=== PATIENT | female | born 1950 ===

== ENCOUNTER 2018-11-18 18:26 | Emergency (ER) | payer MEDICARE, OTHER ==
[2018-11-18 18:27] VITALS: BMI 27.0
[2018-11-18 18:36] VITALS: TEMP 99.4
[2018-11-18] MEDS ORDERED: Albuterol-Ipratrop 3 mg / 0.5 (3 ml) UD INH STA (19:20)
[2018-11-18 19:37] LABS: BASO % 0.4 % (0.0-2.0); EOS # 0.1 K/uL (0.0-0.7); EOS % 0.9 % (0.0-4.0); HEMOGLOBIN 13.7 g/dL (11.0-16.0); LYMPH # 0.8 K/uL (1.0-4.3); MEAN CELL VOLUME 96.6 fL (81.0-99.0); MEAN CORPUSCULAR HEMOGLOBIN 32.8 pg (27.0-31.0); MEAN PLATELET VOLUME 7.7 fL (7.2-11.7); MONO # 0.5 K/uL (0.0-0.8); MONO % 6.7 % (0.0-10.0); NEUT # 6.2 K/uL (1.8-7.0); RBC 4.19 Mil/uL (3.80-5.20); RED CELL DISTRIBUTION WIDTH 12.5 % (11.5-14.5); WHITE BLOOD COUNT 7.6 K/uL (4.8-10.8)
[2018-11-18] MEDS ORDERED: Albuterol-Ipratrop 3 mg / 0.5 (3 ml) UD ONE (19:37)
[2018-11-18 19:48] LABS: ALB/GLOB RATIO 1.4 (1.0-2.1); ALBUMIN 4.2 g/dL (3.5-5.0); ALT/SGPT 43 U/L (9-52); AST/SGOT 93 U/L (14-36); BLOOD UREA NITROGEN 9 mg/dL (7-17); CALCIUM 8.7 mg/dl (8.6-10.4); GFR NON-AFRICAN AMERICAN > 60
--- NOTE | 2018-11-18 19:57 | C.PDOC ---
History Of Present Illness 68 year old female brought to the ED by ambulance for evaluation of shortness of breath, nausea, vomiting and generalized weakness which began yesterday. Patient was evaluated at [place] [facility] yesterday, diagnosed with influenza and discharged. Patient states she was unable to fill her Tamiflu prescription because she felt too weak. She also states she used Albuterol inhaler yesterday, but did not use it today. She denies chest pain, abdominal pain, dysuria, diarrhea, rash. Time Seen by Provider: 11/18/18 19:02 Chief Complaint (Nursing): Shortness Of Breath History Per: Patient, EMS History/Exam Limitations: no limitations Onset/Duration Of Symptoms: Hrs Current Symptoms Are (Timing): Still Present Current Respiratory Medications: See Home Med List Additional History Per: Patient, EMS Past Medical History Reviewed: Historical Data, Nursing Documentation, Vital Signs Vital Signs: Last Vital Signs Temp 99.4 F 11/18/18 18:32 Pulse 109 H 11/18/18 18:32 Resp 21 11/18/18 18:32 BP 167/96 H 11/18/18 18:32 Pulse Ox 95 11/18/18 18:32 - Medical History PMH: Arthritis, Asthma, Diabetes (type II), HTN, Hyperlipidemia Surgical History: Family History: States: No Known Family Hx - Social History Hx Alcohol Use: No Hx Substance Use: No - Immunization History Hx Tetanus Toxoid Vaccination: No Hx Influenza Vaccination: Yes (2018) Hx Pneumococcal Vaccination: Yes (2018) Review Of Systems Constitutional: Positive for: Weakness Cardiovascular: Negative for: Chest Pain, Palpitations Respiratory: Positive for: Cough, Shortness of Breath Gastrointestinal: Positive for: Nausea, Vomiting. Negative for: Abdominal Pain Genitourinary: Negative for: Dysuria, Hematuria Skin: Negative for: Rash Physical Exam - Physical Exam Appears: Well, Non-toxic, Other (in mild discomfort ) Skin: Normal Color, Warm, Dry, No Rash Head: Normacephalic Eye(s): bilateral: Normal Inspection Oral Mucosa: Moist Throat: Normal, No Erythema, No Exudate, No Drooling Neck: Supple Chest: Symmetrical, No Deformity, No Tenderness Cardiovascular: Rhythm Regular, No Murmur, Other (mild tachycardia ) Respiratory: No Rales, No Rhonchi, Wheezing (mild, expiratory ), Other (decreased air entry, speaking in full sentences ) Gastrointestinal/Abdominal: Normal Exam, Bowel Sounds, Soft, No Tenderness, No Guarding, No Rebound Extremity: Normal ROM, No Pedal Edema, No Calf Tenderness Neurological/Psych: Oriented x3 ED Course And Treatment - Laboratory Results Result Diagrams: 11/18/18 19:34 11/18/18 19:34 ECG: Interpreted By Me, Viewed By Me ECG Rhythm: Sinus Rhythm Interpretation Of ECG: Normal Sinus rhythm at 98bpm. Normal axis. No acute ST/T wave changes Rate From EC O2 Sat by Pulse Oximetry: 95 (RA) Pulse Ox Interpretation: Normal - Radiology CXR: Interpreted by Me, Viewed By Me CXR Interpretation: Yes: No Acute Disease. No: Infiltrates Progress Note: Bloodwork, CXR, EKG ordered and reviewed. Patient given IV solumedrol, PO Tamiflu and albuterol neb treatments. Reevaluation Time: 22:30 Reassessment Condition: Improved (On reassessment, patient is resting comfortably and states she feels much better. On exam, she has good air entry B/L without wheezing or accessory muscle use. CXR, EKG and blood work unremarkable. Patient stats she has family that can help her get her prescriptions today. Rxs for Tessalon and tamiflu sent to 24 hour pharmacy. Patient instructed to follow up with PMD/clinic in 1-2 days, and she understands she should return to ED if symptoms worsen.) Disposition Counseled Patient/Family Regarding: Studies Performed, Diagnosis, Need For Followup, Rx Given - Disposition Referrals: Angel Baer MD [Staff Provider] - Disposition: HOME/ ROUTINE Disposition Time: 22:30 Condition: STABLE Additional Instructions: FOLLOW UP WITH YOUR DOCTOR IN 1-2 DAYS USE MEDICATIONS DIRECTED RETURN TO ER IF SYMPTOMS WORSEN Prescriptions: Benzonatate [Tessalon Perles] 100 mg PO BID PRN #15 sgl PRN Reason: Cough Oseltamivir Phosphate [Tamiflu] 75 mg PO BID #9 capsule Instructions: Asthma, Adult (DC), Flu, Adult (DC) Forms: [employer] (Tuvaluan) Print Language: SLOVENIAN - Clinical Impression Clinical Impression: Asthma, Influenza - Scribe Statement The provider has reviewed the documentation as recorded by the Scribe (Louise Quezada) Provider Attestation: All medical record entries made by the Scribe were at my direction and personally dictated by me. I have reviewed the chart and agree that the record accurately reflects my personal performance of the history, physical exam, medical decision making, and the department course for this patient. I have also personally directed, reviewed, and agree with the discharge instructions and disposition.
[2018-11-18 20:00] LABS: B-TYPE NATRIURETIC PEPTIDE 152 pg/mL (0-900)
[2018-11-18] MEDS ORDERED: Albuterol 0.083% Inhal Sol (2.5 mg/3 mL) UD IH STA (20:03)
[2018-11-18] MEDS ORDERED: Albuterol 0.083% Inhal Sol (2.5 mg/3 mL) UD ONE (20:30)
[2018-11-18 23:32] VITALS: BP 142/86; PULSE 100; RESP 20
--- NOTE | 2018-11-19 10:22 | RAD ---
Date of service: 11/18/2018 PROCEDURE: CHEST RADIOGRAPH, 1 VIEW HISTORY: SOB COMPARISON: None available. FINDINGS: LUNGS: The lungs are well inflated and clear. PLEURA: No pneumothorax or pleural effusion. CARDIOVASCULAR: The heart is normal in size. There are aortic atherosclerotic calcifications present. OSSEOUS STRUCTURES: Within normal limits for the patient's age. VISUALIZED UPPER ABDOMEN: Normal. OTHER FINDINGS: None. IMPRESSION: No active pulmonary disease.
--- NOTE | 2018-11-20 13:31 | CARD ---
APPROVED REPORT Date of service: 11/18/2018 EKG Measurement Heart [id number] [id number] <Conclusion> Normal sinus rhythm Possible Left atrial enlargement Borderline ECG
[2018-11-25 12:39] VITALS: O2SAT 95
== END 2018-11-18 23:28 | disposition home or self-care (01) ==
LOC: C.ER 18:26
DX: J45.909 Unspecified asthma, uncomplicated (principal); J11.1 Influenza due to unidentified influenza virus with other respiratory manifestations; I10 Essential (primary) hypertension; E11.9 Type 2 diabetes mellitus without complications; E78.5 Hyperlipidemia, unspecified; Z87.891 Personal history of nicotine dependence
CPT/HCPCS: 71045; 80053; 83880; 84484; 85025; 93005; 96374; 99284; J2930